=== PATIENT | male | born 1980 | race Caucasian/White ===

== ENCOUNTER 2019-01-27 23:43 | Emergency (ER) | payer OTHER ==
[~2019-01-27] VITALS: Ht 177.8 cm; Wt 81.6 kg
[~2019-01-27 23:43] MED LIST: DELTASONE2.5 MG PO; DOXYCYCLINE100 M3 PO; FLEXERIL5 MG PO; NEURONTIN100 MG PO; NEURONTIN600 MG PO; NKHM; PREDNISONE20 MG PO; SUBOXONE 8 MG-1 EACH PO; TRAMADOL HCL50 MG PO; VISTARIL50 MG PO; ZOFRAN4 MG PO
[2019-01-27 23:50] VITALS: BP 133/92
[2019-01-28 00:16] LABS: BASO % 0.5 % (0.0-1.0); EOS # 0.2 10*3/uL (0.0-0.4); HEMATOCRIT 48.4 % (42.0-52.0); LYMPH # 2.9 10*3/uL (1.3-4.4); LYMPH % 34.8 % (27.0-41.0); MEAN CELL VOLUME 96.6 fl (80.0-94.0); MEAN CORPUSCULAR HGB 31.9 pg (27.0-31.0); MEAN CORPUSCULAR HGB CONC 33.1 g/dl (33.0-37.0); MEAN PLATELET VOLUME 9.7 fl (9.6-12.3); MONO # 0.6 10*3/uL (0.1-1.0); MONO % 6.9 % (3.0-9.0); NEUT # 4.6 10*3/uL (2.3-7.9); NEUT % 55.6 % (47.0-73.0); PLATELET COUNT AUTOMATED 249 10*3/uL (130-400); RED BLOOD COUNT 5.01 10*6/uL (4.50-5.90); RED CELL DISTRI WIDTH 13.3 % (0-14.5); WHITE BLOOD COUNT 8.4 10*3/uL (4.8-10.8)
[2019-01-28 00:27] LABS: ACT PARTIAL THROMBO TIME 24.9 SECONDS (20.0-32.1)
[2019-01-28 00:31] LABS: ALBUMIN 4.3 gm/dl (3.1-4.5); ALKALINE PHOSPHATASE 91 U/L (45-117); BUN 16 mg/dl (7-24); CHLORIDE 102 mmol/L (98-107); CREATININE 1.91 mg/dL (0.70-1.30); LIPASE 66 U/L (73-393); SGOT/AST 49 IU/L (3-35); SGPT/ALT 71 U/L (12-78); SODIUM 136 mmol/L (136-145); TOTAL PROTEIN 9.2 gm/dL (6.4-8.2)
[2019-01-28 00:32] LABS: TROPONIN I < 0.015 ng/ml (<0.045)
== END 2019-01-28 00:14 | disposition left against medical advice (07) ==
LOC: ED 23:43
PROVIDERS: Student in an Organized Health Care Education/Training Program
DX: T40.1X1A Poisoning by heroin, accidental (unintentional), initial encounter (principal); F17.200 Nicotine dependence, unspecified, uncomplicated; J45.909 Unspecified asthma, uncomplicated; G89.29 Other chronic pain; Z98.890 Other specified postprocedural states; Z91.030 Bee allergy status; Z79.899 Other long term (current) drug therapy; Y92.89 Other specified places as the place of occurrence of the external cause

== ENCOUNTER 2019-02-03 02:19 | Emergency (ER) | payer OTHER ==
[~2019-02-03] VITALS: Ht 177.8 cm; Wt 81.6 kg
[2019-02-03 02:22] VITALS: BP 159/96
[2019-02-03] MEDS ORDERED: NARCAN IM (02:36)
== END 2019-02-03 02:42 | disposition left against medical advice (07) ==
LOC: ED 02:19
DX: T40.1X1A Poisoning by heroin, accidental (unintentional), initial encounter (principal); R40.20 Unspecified coma; J45.909 Unspecified asthma, uncomplicated; F11.10 Opioid abuse, uncomplicated; F17.200 Nicotine dependence, unspecified, uncomplicated; Z91.030 Bee allergy status; Z91.048 Other nonmedicinal substance allergy status; Z79.2 Long term (current) use of antibiotics; Z79.899 Other long term (current) drug therapy; Y92.098 Other place in other non-institutional residence as the place of occurrence of the external cause

== ENCOUNTER 2019-03-17 19:18 | Emergency (ER) | payer OTHER ==
[~2019-03-17] VITALS: Ht 175.2 cm; Wt 77.1 kg
--- NOTE | ~2019-03-17 | EKG ---
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
[~2019-03-17 19:18] MED LIST changes: +NARCAN IM
[2019-03-17 19:19] VITALS: BP 142/96
[2019-03-17 20:22] LABS: BASO # 0.1 10*3/uL (0.0-0.1); BASO % 0.5 % (0.0-1.0); EOS # 0.2 10*3/uL (0.0-0.4); EOS % 2.3 % (1.0-4.0); HEMATOCRIT 38.1 % (42.0-52.0); HEMOGLOBIN 13.2 g/dl (14.0-18.0); LYMPH # 3.3 10*3/uL (1.3-4.4); LYMPH % 32.9 % (27.0-41.0); MEAN CELL VOLUME 91.1 fl (80.0-94.0); MEAN CORPUSCULAR HGB 31.6 pg (27.0-31.0); MEAN CORPUSCULAR HGB CONC 34.6 g/dl (33.0-37.0); MEAN PLATELET VOLUME 9.5 fl (9.6-12.3); MONO # 0.9 10*3/uL (0.1-1.0); MONO % 8.6 % (3.0-9.0); NEUT # 5.6 10*3/uL (2.3-7.9); NEUT % 55.6 % (47.0-73.0); PLATELET COUNT AUTOMATED 248 10*3/uL (130-400); RED BLOOD COUNT 4.18 10*6/uL (4.50-5.90); RED CELL DISTRI WIDTH 12.8 % (0-14.5)
[2019-03-17 20:49] LABS: ALBUMIN 3.9 gm/dl (3.1-4.5); ALKALINE PHOSPHATASE 78 U/L (45-117); BUN 17 mg/dl (7-24); CHLORIDE 103 mmol/L (98-107); CREATININE 1.17 mg/dL (0.70-1.30); POTASSIUM 3.4 mmol/L (3.5-5.1); SGOT/AST 49 IU/L (3-35); SGPT/ALT 54 U/L (12-78); SODIUM 134 mmol/L (136-145)
[2019-03-17 20:58] LABS: ACETAMINOPHEN (TYLENOL) < 5.0 ug/ml (10-30); ETHYL ALCOHOL < 3.0 mg/dl (<3)
== END 2019-03-17 21:27 | disposition left against medical advice (07) ==
LOC: ED 19:18
PROVIDERS: Emergency Medicine
DX: T40.1X1A Poisoning by heroin, accidental (unintentional), initial encounter (principal); S00.81XA Abrasion of other part of head, initial encounter; G25.2 Other specified forms of tremor; J45.909 Unspecified asthma, uncomplicated; G89.29 Other chronic pain; F17.200 Nicotine dependence, unspecified, uncomplicated; Z91.030 Bee allergy status; Z91.048 Other nonmedicinal substance allergy status; Z79.899 Other long term (current) drug therapy; X58.XXXA Exposure to other specified factors, initial encounter; Y93.89 Activity, other specified; Y92.89 Other specified places as the place of occurrence of the external cause; Y99.8 Other external cause status

== ENCOUNTER 2019-04-21 18:58 | Inpatient (IN) | payer OTHER ==
[~2019-04-21] VITALS: Ht 180.3 cm; Wt 69.6 kg
--- NOTE | ~2019-04-21 | EKG ---
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
[2019-04-21 19:15] VITALS: BP 136/88
[2019-04-21 19:56] LABS: BILIRUBIN NEGATIVE (NEGATIVE); BLOOD NEGATIVE (NEGATIVE); CLARITY CLEAR (CLEAR); COLOR YELLOW (YELLOW); GLUCOSE NEGATIVE (NEGATIVE); KETONE NEGATIVE (NEGATIVE); LEUKO ESTERASE NEGATIVE (NEGATIVE); NITRITE NEGATIVE (NEGATIVE)
[2019-04-21 19:59] LABS: BACTERIA TRACE; WBC 31-40 wbc/hpf (0-5)
--- NOTE | 2019-04-21 20:00 | NUR ---
PATIENT AROUSES EASILY TO VERBAL STIMULI AT THIS TIME. RESPIRATIONS EASY, NON-LABORED ON ROOM AIR. RN WILL CONTINUE TO MONITOR.
[2019-04-21 20:01] LABS: URINE AMPHETAMINES > 1000 (1000ng/ml); URINE BARBITURATES < 200 (200ng/ml); URINE BENZODIAZEPINES < 200 (200ng/ml); URINE CANNABINOIDS (THC) > 50 (50ng/ml); URINE COCAINE > 300 (300ng/ml); URINE METHADONE < 300 (300ng/ml); URINE OPIATES < 300 (300ng/ml)
[2019-04-21 20:02] LABS: URINE PHENCYCLIDINE < 25 (25ng/ml)
[2019-04-21 20:04] LABS: BASO % 0.3 % (0.0-1.0); EOS # 0.1 10*3/uL (0.0-0.4); EOS % 0.9 % (1.0-4.0); HEMATOCRIT 38.3 % (42.0-52.0); HEMOGLOBIN 12.5 g/dl (14.0-18.0); LYMPH # 1.7 10*3/uL (1.3-4.4); LYMPH % 14.4 % (27.0-41.0); MEAN CELL VOLUME 93.2 fl (80.0-94.0); MEAN CORPUSCULAR HGB 30.4 pg (27.0-31.0); MEAN CORPUSCULAR HGB CONC 32.6 g/dl (33.0-37.0); MEAN PLATELET VOLUME 9.2 fl (9.6-12.3); MONO # 0.8 10*3/uL (0.1-1.0); MONO % 6.6 % (3.0-9.0); NEUT # 8.9 10*3/uL (2.3-7.9); NEUT % 77.5 % (47.0-73.0); PLATELET COUNT AUTOMATED 238 10*3/uL (130-400); RED BLOOD COUNT 4.11 10*6/uL (4.50-5.90); RED CELL DISTRI WIDTH 13.6 % (0-14.5); WHITE BLOOD COUNT 11.4 10*3/uL (4.8-10.8)
[2019-04-21 20:38] LABS: ALBUMIN 3.3 gm/dl (3.1-4.5); ALKALINE PHOSPHATASE 106 U/L (45-117); BUN 13 mg/dl (7-24); CHLORIDE 108 mmol/L (98-107); CREATININE 1.18 mg/dL (0.70-1.30); POTASSIUM 3.5 mmol/L (3.5-5.1); SGOT/AST 50 IU/L (3-35); SGPT/ALT 50 U/L (12-78); SODIUM 141 mmol/L (136-145); TOTAL PROTEIN 7.7 gm/dL (6.4-8.2)
[2019-04-21 20:39] LABS: ACETAMINOPHEN (TYLENOL) < 5.0 ug/ml (10-30); ETHYL ALCOHOL < 3.0 mg/dl (<3)
[2019-04-21 21:00] VITALS: BP 119/75
--- NOTE | 2019-04-21 21:44 | NUR ---
PATIENT RESTLESS IN BED AT THIS TIME. PATIENT AWAKE, ALERT ORIENTED X3. PATIENT PULLED OUT RIGHT HAND IV AT THIS TIME.
[2019-04-21 22:00] VITALS: BP 115/76
[2019-04-22 00:23] VITALS: BP 113/73
[2019-04-22 01:00] VITALS: BP 134/90
--- NOTE | 2019-04-22 01:00 | NUR ---
PT AWOKE WITH VOICE AND TACTILE STIMULATION TO WALK WITH ASSISTANCE TO BED AND THEN LAID DOWN IN BED. ONLY AWAKENS TO TACTILE STIMULATION. PT. HAS OCCASSIONAL JERKING MOTIONS WITH ARMS AND LEGS. A 38, admitted to , under the services of RAUL Eagle DO with a diagnosis of overdose. Chief complaint is PT. WAS DUMBED OFF DUSKY AND BLUE. . GIVEN NARCAN SEVERAL TIMES IN ER.. Patient arrived via stretcher from ER. Monitor applied. Initial assessment completed. Vital signs taken and recorded. RAUL EAGLE DO notified of admission to the . Orders received. See assessment for past medical history, medications and allergies. Patient and/or family oriented to unit. [facility] visitation policy reviewed. Clothing/patient valuable form completed. BUMP NOTED ON LEFT FOREHEAD ABOVE EYEBROWN WITH ABRASION AND ALSO TOP OF RIGHT EAR HAS ABRASION. PICTURES TAKEN AND MEASURED. IV INFUSING PER ER IN LEFT FOREARM. ELEANOR SALMON
--- NOTE | 2019-04-22 01:37 | NUR ---
PT. NOT ANSWERING QUESTIONS VERY EASILY HAVE TO STERNAL RUB AND VERBAL STIMULATION. PT. VOICED BIRTHDAY AND ALLERGIES AND WENT BACK TO SLEEP. RESP. STILL 15 BPM
--- NOTE | 2019-04-22 01:57 | NUR ---
UNABLE TO OBTAINED HOME MEDICATIONS AT THIS TIME.
--- NOTE | 2019-04-22 02:10 | NUR ---
PT. TURNED TO LEFT SIDE MOVING AROUND ALOT MORE THAN WHEN FIRST CAME TO FLOOR. KICKING HIS LEGS AND MOVING HIS ARMS MOVE. RESP 16BPM
--- NOTE | 2019-04-22 02:27 | NUR ---
CALLED DR. CHAUDHRY TO CLARIFY NARCAN IS PRN ONLY IF RESP. DECREASE.
--- NOTE | 2019-04-22 04:33 | NUR ---
AWAKEND ALERT AND ORIENTED X3. INCONTINENT FOR STOOL. PATIENT GOT CLEANED UP AND BACK TO BED. IV INFUSING WITHOUT DIFFICULTY.
--- NOTE | 2019-04-22 06:18 | NUR ---
ANATOLIY EMERSON [id number] Please refer to the physician's history and physical for past medical history, comorbid conditions, and allergies. Diagnosis: DRUG OVERDOSE, MULTIPLE DRUGS Roni Score: 18,AT RISK WOUND DESCRIPTIONS: Wound Number: 1 Location of the wound: left forehead Type of wound: abrasion Thickness: Partial Size: 3.0cm x 0.7cm x 0.1cm Tunneling: none Undermining: none Sinus Tract: none Presence of Exudate: none Amount: None Color: Red, yellow Odor: None Periwound Skin Appearance: Normal Wound edges: approximated Pain (associated with wound): none at time of assessment How does patient state this happened? pt unable to state how this happened Wound Number: 2 Location of the wound: right top of ear Type of wound: abrasion Thickness: Partial Size: 2.7cm x 0.7cm x 0.1cm Tunneling: none Undermining: none Sinus Tract: none Presence of Exudate: Serosanguineous Amount: Light Color: Red Odor: None Periwound Skin Appearance: Normal Wound edges: approximated Pain (associated with wound): none at time of assessment How does patient state this happened? pt unable to state how this happened Surface the patient is resting on: Isoflex SKIN PREVENTION RECOMMENDATION: 1. Pressure redistribution support surface as appropriate 2. Elevate heels 3. Remove boots/TEDS every shift and reapply 4. Head of bed 30 degrees as tolerated 5. Assess nutrition and hydration 6. Manage moisture 7. Avoid the use of containment devices while in bed 8. Use absorptive products on surfaces limit layers of linens on bed 9. Turn and reposition every 1-2 hours in bed and every 1 hour in chair as tolerated 10. Weight shifts every 15 minutes while up in chair 11. Offloading with pillows or device to keep heels elevated off bed 12. Monitor skin at least every shift 13. Inspect under medical devices twice a day WOUND TREATMENT RECOMMENDATIONS: Dressing change: Cleanse left side of forehead and right top of ear with nss and apply bactroban bid D/C skin tear guidelines
[2019-04-22 07:13] LABS: BASO % 0.3 % (0.0-1.0); EOS # 0.1 10*3/uL (0.0-0.4); EOS % 1.3 % (1.0-4.0); HEMATOCRIT 38.2 % (42.0-52.0); HEMOGLOBIN 12.5 g/dl (14.0-18.0); LYMPH # 2.4 10*3/uL (1.3-4.4); LYMPH % 27.1 % (27.0-41.0); MEAN CELL VOLUME 93.2 fl (80.0-94.0); MEAN CORPUSCULAR HGB 30.5 pg (27.0-31.0); MEAN CORPUSCULAR HGB CONC 32.7 g/dl (33.0-37.0); MEAN PLATELET VOLUME 9.4 fl (9.6-12.3); MONO # 0.5 10*3/uL (0.1-1.0); MONO % 5.8 % (3.0-9.0); NEUT # 5.7 10*3/uL (2.3-7.9); NEUT % 65.3 % (47.0-73.0); PLATELET COUNT AUTOMATED 228 10*3/uL (130-400); RED CELL DISTRI WIDTH 13.8 % (0-14.5); WHITE BLOOD COUNT 8.7 10*3/uL (4.8-10.8)
[2019-04-22 07:28] LABS: ALKALINE PHOSPHATASE 90 U/L (45-117); BUN 13 mg/dl (7-24); CHLORIDE 112 mmol/L (98-107); CHOLESTEROL 119 mg/dL (<200); CREATININE 0.94 mg/dL (0.70-1.30); HDL CHOLESTEROL 46 mg/dl (40-60); LDL CHOLESTEROL 65 mg/dL (9-159); PHOSPHOROUS 2.1 mg/dL (2.5-4.9); POTASSIUM 3.7 mmol/L (3.5-5.1); SGOT/AST 35 IU/L (3-35); SGPT/ALT 48 U/L (12-78); SODIUM 142 mmol/L (136-145); TOTAL PROTEIN 7.1 gm/dL (6.4-8.2); TRIGLYCERIDES 38 mg/dl (<150); VLDL CHOLESTEROL 8 mg/dL (6-40)
[2019-04-22 08:15] VITALS: BP 130/78
--- NOTE | 2019-04-22 08:18 | NUR ---
AWAKENED FOR vs . No c/o.
--- NOTE | 2019-04-22 10:22 | NUR ---
Pt was seen heading to the elevator with belongings. Pt stopped getting onto elevator by this nurse and Wu RN. Pt states he is leaving. Asked pt to come have iv removed prior to leaving. Pt complied, iv removed and AMA paper signed.
--- NOTE | 2019-04-22 10:42 | NUR ---
Attempt to notify hospitalist of AMA met w/ busy signal
== END 2019-04-22 10:22 | disposition left against medical advice (07) | DRG 918 ==
LOC: ED 18:58 → EDHOLD 23:47 → 4E 23:47
PROVIDERS: Emergency Medicine; Student in an Organized Health Care Education/Training Program; ADMIT Internal Medicine
DX: T50.911A Poisoning by multiple unspecified drugs, medicaments and biological substances, accidental (unintentional), initial encounter (principal); E44.0 Moderate protein-calorie malnutrition; J01.20 Acute ethmoidal sinusitis, unspecified; J45.909 Unspecified asthma, uncomplicated; G89.29 Other chronic pain; M54.9 Dorsalgia, unspecified; J01.10 Acute frontal sinusitis, unspecified; F14.10 Cocaine abuse, uncomplicated; F15.10 Other stimulant abuse, uncomplicated; F17.210 Nicotine dependence, cigarettes, uncomplicated; F12.10 Cannabis abuse, uncomplicated; R00.0 Tachycardia, unspecified; D64.9 Anemia, unspecified; E87.8 Other disorders of electrolyte and fluid balance, not elsewhere classified; R73.9 Hyperglycemia, unspecified; R74.0 Nonspecific elevation of levels of transaminase and lactic acid dehydrogenase [LDH]; F11.10 Opioid abuse, uncomplicated; B19.20 Unspecified viral hepatitis C without hepatic coma; Z82.49 Family history of ischemic heart disease and other diseases of the circulatory system; Z86.19 Personal history of other infectious and parasitic diseases; Z88.8 Allergy status to other drugs, medicaments and biological substances; Z91.030 Bee allergy status; Z79.899 Other long term (current) drug therapy; Z82.3 Family history of stroke; Z80.8 Family history of malignant neoplasm of other organs or systems; Z68.21 Body mass index [BMI] 21.0-21.9, adult; Z53.21 Procedure and treatment not carried out due to patient leaving prior to being seen by health care provider; Y92.89 Other specified places as the place of occurrence of the external cause